=== PATIENT | male | born 1945 | race Caucasian/White ===

== ENCOUNTER 2017-05-25 23:33 | Emergency (ER) | payer OTHER ==
[~2017-05-25] VITALS: Ht 180.3 cm; Wt 94.9 kg
[~2017-05-25 23:33] MED LIST: AZASITE2.5 ML BOTH EYES; ERYTHROMYC1 APPLICAT BOTH EYES
[2017-05-26] MEDS ORDERED: ZITHROMAX Z-PA250 MG PO (03:10)
[2017-05-26] MEDS ORDERED: PREDNISONE20 MG PO (03:10)
[2017-05-26 03:29] VITALS: BP 120/80
== END 2017-05-26 03:29 | disposition home or self-care (01) ==
LOC: EME 23:33 → EXP 23:33
PROVIDERS: Physician Assistant
DX: J20.9 Acute bronchitis, unspecified (principal); J06.9 Acute upper respiratory infection, unspecified; Z88.2 Allergy status to sulfonamides
CPT/HCPCS: 71020; 71275; 87502; 99281; 99284; J2930; J7030

== ENCOUNTER 2017-07-27 15:44 | Emergency (ER) | payer OTHER ==
[~2017-07-27] VITALS: Ht 180.3 cm; Wt 95.5 kg
[~2017-07-27 15:44] MED LIST changes: +PREDNISONE20 MG PO; +ZITHROMAX Z-PA250 MG PO
[2017-07-27] MEDS ORDERED: PHENERGAN-CODE120 ML PO (18:11)
[2017-07-27 18:40] VITALS: BP 130/75
== END 2017-07-27 18:41 | disposition home or self-care (01) ==
LOC: EME 15:44
DX: J10.1 Influenza due to other identified influenza virus with other respiratory manifestations (principal); J98.01 Acute bronchospasm; I10 Essential (primary) hypertension; I25.10 Atherosclerotic heart disease of native coronary artery without angina pectoris; Z95.1 Presence of aortocoronary bypass graft; Z87.442 Personal history of urinary calculi; Z88.2 Allergy status to sulfonamides
CPT/HCPCS: 71046; 87502; 94640; 94664; 99281; 99284; J1100

== ENCOUNTER 2017-08-02 02:09 | Inpatient (IN) | payer OTHER ==
[~2017-08-02] VITALS: Ht 180.3 cm; Wt 92.6 kg
[~2017-08-02 02:09] MED LIST changes: +PHENERGAN-CODE120 ML PO
[2017-08-02 02:28] LABS: HEMATOCRIT 49.1 % (38.0-50.0); MCH 32.1 PG (29.0-34.0); MCHC 34.6 G/DL (30.0-36.0); MCV 92.6 FL (86-99); PLATELET COUNT 208 K/uL (156-360); RBC DIS.WIDTH-CV 13.6 % (11.8-14.6); RBC DIS.WIDTH-SD 46.6 % (39-53); WHITE BLOOD COUNT 7.6 K/uL (4.1-10.2)
[2017-08-02 02:48] LABS: CHLORIDE 103 MEQ/L (99-109); CREATININE 1.6 MG/DL (0.6-1.3); GFR ESTIMATE (CALCULATED) 45 mL/min/ (58.99-99999); GLUCOSE 117 mg/dL (70-99); POTASSIUM 4.8 MEQ/L (3.7-5.4); SODIUM 140 MEQ/L (136-147); UREA NITROGEN (BUN) 28 mg/dL (9-23)
[2017-08-02 03:50] LABS: TROP-I INTERPRETATION NEGATIVE; TROPONIN-I < 0.01 ng/mL (0.0-0.30)
[2017-08-02] MEDS ORDERED: SIMVASTATIN40 MG PO (05:21)
[2017-08-02] MEDS ORDERED: ZOFRAN4 MG PO (07:18)
[2017-08-02] MEDS ORDERED: BENTYL20 MG PO (07:18)
[2017-08-02] MEDS ORDERED: AMBIEN10 MG PO (08:34)
[2017-08-02] MEDS ORDERED: ZOCOR40 MG PO (08:37)
[2017-08-02] MEDS ORDERED: PHENERGAN-CODE120 ML PO (08:37)
[2017-08-02] MEDS ORDERED: LEVAQUIN500 MG PO (08:40)
[2017-08-02] MEDS ORDERED: PROAIR HFA8.5 GM IH (08:40)
[2017-08-02 16:18] VITALS: BP 155/90
[2017-08-02 19:47] VITALS: BP 152/85
[2017-08-02 23:54] VITALS: BP 127/57
[2017-08-03 04:12] VITALS: BP 124/59
[2017-08-03 07:53] VITALS: BP 135/67
[2017-08-03 09:03] LABS: HEMATOCRIT 45.8 % (38.0-50.0); HEMOGLOBIN 15.8 G/DL (12.5-16.6); MCH 31.7 PG (29.0-34.0); MCHC 34.5 G/DL (30.0-36.0); MCV 91.8 FL (86-99); PLATELET COUNT 209 K/uL (156-360); RBC DIS.WIDTH-CV 13.9 % (11.8-14.6); RBC DIS.WIDTH-SD 46.9 % (39-53); RED BLOOD COUNT 4.99 M/uL (4.00-5.50); WHITE BLOOD COUNT 17.6 K/uL (4.1-10.2)
[2017-08-03 09:33] LABS: CHLORIDE 103 MEQ/L (99-109); CREATININE 1.4 MG/DL (0.6-1.3); GFR ESTIMATE (CALCULATED) 53 mL/min/ (58.99-99999); POTASSIUM 3.9 MEQ/L (3.7-5.4); SODIUM 137 MEQ/L (136-147); UREA NITROGEN (BUN) 29 mg/dL (9-23)
[2017-08-03 09:37] LABS: GLUCOSE 255 mg/dL (70-99)
[2017-08-03] MEDS ORDERED: PREDNISONE10 MG PO (11:58)
[2017-08-03] MEDS ORDERED: COMBIVENT RESPIM4 GM IH (11:58)
[2017-08-03] MEDS ORDERED: MUCINEX600 MG PO (11:58)
[2017-08-03] MEDS ORDERED: LEVAQUIN750 MG PO (11:58)
[2017-08-03 11:59] VITALS: BP 123/61
== END 2017-08-03 13:45 | disposition home or self-care (01) | DRG 204 ==
LOC: EME 02:09 → EDOF 04:31 → ENRESERV 04:36 → 5SOUTH 15:45
PROVIDERS: Emergency Medicine; Internal Medicine
DX: R06.03 Acute respiratory distress (principal); J44.0 Chronic obstructive pulmonary disease with (acute) lower respiratory infection; J10.1 Influenza due to other identified influenza virus with other respiratory manifestations; N17.9 Acute kidney failure, unspecified; J20.9 Acute bronchitis, unspecified; N18.3 Chronic kidney disease, stage 3 (moderate); I12.9 Hypertensive chronic kidney disease with stage 1 through stage 4 chronic kidney disease, or unspecified chronic kidney disease; I25.10 Atherosclerotic heart disease of native coronary artery without angina pectoris; E78.5 Hyperlipidemia, unspecified; Z87.442 Personal history of urinary calculi; Z95.1 Presence of aortocoronary bypass graft; Z85.828 Personal history of other malignant neoplasm of skin; J98.09 Other diseases of bronchus, not elsewhere classified
CPT/HCPCS: 71046; 71250; 80048; 84484; 85027; 87070; 87205; 87449; 94640; 94640 76; 94760; 94799; 99202; 99281; 99285; J1650; J1956; J2930; J3475; J7030; J7120